=== PATIENT | male | born 1975 | race Caucasian/White ===

== ENCOUNTER 2025-09-19 16:00 | Inpatient (IN) ==
--- NOTE | 2025-09-19 16:20 | Emergency Department Note ---
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 He notes since his diagnosis he has had belly pain but this has significantly worsened over the past 3 weeks. He notes that has been unable to keep really anything down. He notes he has been significantly more short of breath. He does have increased swelling in the bilateral lower extremities. ADDITIONAL HISTORY OBTAINED: Family provides additional history notes that he is on Eliquis. [id number] also has that he has continued to deteriorate and they are struggling taking care of him at this time. They do not know his prognosis. Chronic Medical/Social Conditions Affecting Care: Per HPI PAST MEDICAL HISTORY:See Below PAST SURGICAL HISTORY:See Below FAMILY HISTORY:See Below SOCIAL HISTORY:See Below HOME MEDICATIONS:See Below ALLERGIES:See Below VITALS:See Below PHYSICAL EXAMINATION: GENERAL: Sitting up in bed, alert, ill-appearing, disheveled EYE EXAM: normal conjunctiva. PERRL and EOM's grossly intact. OROPHARYNX: Dry mucous membranes NECK: supple, no nuchal rigidity, no adenopathy, non-tender LUNGS: Clear to auscultation. Normal chest wall mechanics HEART: no murmurs, S1 normal and S2 normal ABDOMEN: abdomen firm and distended, tender to palpation, urostomy in right lower quadrant BACK: Back is symmetrical on inspection and there is no deformity, no midline tenderness, no CVA tenderness. UPPER EXTREMITIES: upper extremities are grossly normal. LOWER EXTREMITIES: Pitting edema in the bilateral lower extremities. Calves are equal bilaterally. NEURO EXAM: Normal sensorium, cranial nerves II-XII grossly intact, normal speech, no gross weakness of arms, no gross weakness of legs. MEDICAL DECISION MAKING: Patient is a 50-year-old male who presents ER for above-stated complaint. IV was established and blood work is obtained. He is found to be tachycardic and complaining of diffuse abdominal pain. Labs show leukocytosis of 22,000 which has continued to increase since his last visit. Hemoglobin 11. BMP with hyperkalemia at 5.6 and a BUN which was significantly elevated which does favor dehydration. He was given IV fluids. Calcium was elevated at 12.6. LFTs with an AST of 955 and ALT of 500. T. bili at 2.3. BNP is elevated at 600. Lipase was normal. UA with nitrates leuks whites and bacteria. Was covered with IV cefepime. Patient was given IV Zometa after discussion with hematology oncology Dr. Velazquez. Did discuss with the [id number] and we do have significant amount of questions in regards to life expectancy and possible options. Family would likely benefit as well as patient with a discussion with the hospitalist, oncology and palliative care at this time. Will defer to the hospitalist. Patient was given several dose of IV morphine while here and was placed on nasal cannula. Consults/Care Managements Discussions: Per [facility] Triage Nursing notes reviewed. Limited review of prior medical records performed Vital Signs: reviewed and remarkable for tachy Differential diagnosis: Infection, dehydration, metabolic abnormality, hypo/hyperglycemia, electrolyte disturbance, anemia, hypoxia, cardiac sources, intracerebral event, toxicologic, neurologic, as well as other pathologies. ER treatment provided: See below Diagnostics interpreted by me include EKG and cardiac monitoring as listed below: -Cardiac Monitoring: An order was placed for continuous cardiac monitoring. The monitor shows a rate of 112 with sinus rhythm. -ECG: Sinus tachycardia rate of 118 Left axis No PVCs QTc 414 -Laboratory studies:Interpreted by me as stated above in MDM and shown below. Imaging studies: Xrays: As interpreted by me: Portable AP upright 1 view of the chest shows nodular opacities in the lungs CTs show: CTA of the chest and abdomen pelvis as described above Procedures:none Critical Care: None Past Med/Surg History Problem List (Updated 09/19/25 @ 21:28 by Background Dadennys) Iliac vein thrombosis, left Suspected UTI Hypercalcemia of malignancy Acute UTI (Acute) Leukocytosis (Acute) Acute liver failure (Acute) Acute hyperkalemia (Acute) Abdominal pain (Acute) Hypercalcemia (Acute) Metastatic cancer (Acute) Opioid-induced constipation Cancer related pain Iron deficiency anemia Iron deficiency Left shoulder pain Metastasis to liver Constipation Distended bladder Left testicular pain Neurogenic bladder Lower back pain Erectile dysfunction Urinary hesitancy Pectoralis muscle rupture Medical History Pelvic mass in 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 Surgical History H/O knee surgery Social History Smoking Status: Never smoker Second Hand Exposure: No; Preferred Language: [place] Hearing Ability: Normal Immunology Teacher Required: No Beliefs That Will Affect Care: None marital status: Current Living Situation: Family current occupational status: employed Feels Safe at Home: Yes Childhood Exposure to Second-Hand Smoke: No Seatbelt Use: always Sunscreen Use: Yes Allergies Allergies Allergy/AdvReac Type Severity Reaction Status Date / Time latex Allergy rash Verified 09/19/25 17:38 adhesive tape AdvReac rash Verified 09/19/25 17:38 Home Meds Home Medications Medication Instructions Recorded Confirmed nandrolone decanoate 100 mg/mL 20 mg IM 3XWK 03/14/24 09/19/25 intramuscular syringe tadalafil 10 mg tablet 10 mg PO DAILY PRN PRN 03/14/24 09/19/25 testosterone cypionate 100 mg/mL 40 mg subcut 3XWK 03/14/24 09/19/25 intramuscular oil 27.17 1 applic topical BID PRN NEEDED 07/05/25 09/19/25 anastrozole 1 mg tablet 0.125 mg PO 3XWK 08/03/25 09/19/25 polyethylene glycol 3350 17 17 g PO DAILY 09/06/25 09/19/25 gram/dose oral powder (Miralax) apixaban 5 mg tablet (Eliquis) 5 mg PO BID 09/19/25 09/19/25 cyclobenzaprine 10 mg tablet 5 - 10 mg PO BID PRN muscle spasm 09/19/25 09/19/25 Previous Rx's Medication Instructions Recorded iron sucrose 100 mg iron/5 mL 300 mg (15 mL) IV Q7D 3 doses 08/03/25 intravenous solution naloxone 4 mg/actuation nasal spray 1 spray intranasal Q3M PRN opioid 08/30/25 overdose #2 ea gabapentin 300 mg capsule 300 mg PO TID #90 caps 09/04/25 duloxetine 30 mg capsule,delayed 30 mg PO DAILY #30 caps 09/15/25 release fentanyl 50 mcg/hr transdermal 1 patch transdermal Q72H #10 ea 09/15/25 patch hydromorphone 2 mg tablet 2 mg PO .COMPLEX #120 tabs 09/15/25 Results & Data (ED) Vital Signs Vital Signs - 24 hr 09/19/25 16:09 09/19/25 16:09 09/19/25 16:27 Temperature 36.4 C L Temperature Source Oral Pulse Rate 118 H Pulse Rate [Apical] Pulse Rate from SpO2 Sensor Respiratory Rate 18 Blood Pressure 120/99 Blood Pressure [Right Arm] Blood Pressure Mean 106 Blood Pressure Mean [Right Arm] Pulse Oximetry 93 Oxygen Delivery Method Room Air Room Air Room Air Oxygen Flow Rate Sepsis New/Unexplained Change in Mental Status No Sepsis Action Taken by Nursing No Action Required Oxygen Flow Rate - Titration Pulse Oximetry Post Tiitration 09/19/25 16:29 09/19/25 16:30 09/19/25 17:00 Temperature Temperature Source Pulse Rate 120 H 114 H Pulse Rate [Apical] 116 H Pulse Rate from SpO2 Sensor 114 H Respiratory Rate 16 17 Blood Pressure Blood Pressure [Right Arm] 132/93 Blood Pressure Mean Blood Pressure Mean [Right Arm] 106 Pulse Oximetry 92 91 Oxygen Delivery Method Room Air Room Air Oxygen Flow Rate Sepsis New/Unexplained Change in Mental Status Sepsis Action Taken by Nursing Oxygen Flow Rate - Titration Pulse Oximetry Post Tiitration 09/19/25 17:00 09/19/25 17:30 09/19/25 17:30 Temperature Temperature Source Pulse Rate 114 H Pulse Rate [Apical] Pulse Rate from SpO2 Sensor 114 H Respiratory Rate 14 Blood Pressure 124/87 124/97 Blood Pressure [Right Arm] Blood Pressure Mean 108 106 Blood Pressure Mean [Right Arm] Pulse Oximetry 91 Oxygen Delivery Method Oxygen Flow Rate Sepsis New/Unexplained Change in Mental Status Sepsis Action Taken by Nursing Oxygen Flow Rate - Titration Pulse Oximetry Post Tiitration 09/19/25 18:00 09/19/25 18:00 09/19/25 18:05 Temperature Temperature Source Pulse Rate 113 H Pulse Rate [Apical] Pulse Rate from SpO2 Sensor 112 H Respiratory Rate 12 Blood Pressure 125/91 Blood Pressure [Right Arm] Blood Pressure Mean 109 Blood Pressure Mean [Right Arm] Pulse Oximetry 92 88 L Oxygen Delivery Method Nasal Cannula Oxygen Flow Rate 0 Sepsis New/Unexplained Change in Mental Status Sepsis Action Taken by Nursing Oxygen Flow Rate - Titration 2 Pulse Oximetry Post Tiitration 96 09/19/25 18:13 09/19/25 18:30 09/19/25 18:30 Temperature Temperature Source Pulse Rate 112 H Pulse Rate [Apical] 111 H Pulse Rate from SpO2 Sensor 112 H Respiratory Rate 12 11 L Blood Pressure 128/92 Blood Pressure [Right Arm] Blood Pressure Mean 96 Blood Pressure Mean [Right Arm] Pulse Oximetry 97 97 Oxygen Delivery Method Nasal Cannula Nasal Cannula Oxygen Flow Rate 2 2 Sepsis New/Unexplained Change in Mental Status Sepsis Action Taken by Nursing Oxygen Flow Rate - Titration Pulse Oximetry Post Tiitration Laboratory Data 09/19/25 16:13 09/19/25 16:13 Lab Results 09/19/25 09/19/25 Range/Units 16:13 16:30 WBC 22.77 H (4.8-10.8) K/ul RBC 5.28 (4.70-6.10) M/uL Hgb 11.8 L (14.0-18.0) g/dL Hct 38.1 L (42.0-52.0) % MCV 72.2 L (80.0-100.0) fL MCH 22.3 L (25.0-34.0) pg MCHC 31.0 L (32.0-36.0) g/dL RDW Std Deviation 65.9 H (36.4-46.3) fL RDW Coeff of Ludivina 27.8 H (11.5-14.5) % Plt Count 171 (130-400) K/uL Absolute Nucleated RBC 1.88 H (0.00-0.12) K/uL Nucleated RBC % (auto) 8.3 % Neutrophils % (Manual) 65 % Lymphocytes % (Manual) 7 % Monocytes % (Manual) 7 % Eosinophils % (Manual) 1 % Basophils % (Manual) 1 % Metamyelocytes % (Man) 8 % Myelocytes % (Man) 11 % Neutrophils # (Manual) 14.80 H (1.40-6.50) K/uL Total Absolute Neuts 14.80 H (1.4-6.5) K/uL Lymphocytes # (Manual) 1.59 (1.2-3.4) K/uL Total Abs Lymphocytes 1.59 (1.2-3.4) K/uL Monocytes # (Manual) 1.59 H (0.11-0.59) K/uL Eosinophils # (Manual) 0.23 (0-0.50) K/uL Basophils # (Manual) 0.23 H (0-0.2) K/uL Metamyelocytes # (Man) 1.82 H (0-0) K/uL Myelocytes # (Manual) 2.50 H (0-0) K/uL Polychromasia 2+ Anisocytosis Present Sodium 132 L (136-145) mmol/L Potassium 5.6 H (3.5-5.1) mmol/L Chloride 95 L (98-107) mmol/L Carbon Dioxide 25 (21-32) mmol/L Anion Gap 12 H (3-11) BUN 70 H (6-23) mg/dl Creatinine 1.39 (0.6-1.4) mg/dl Est Cr Clr Drug Dosing 88.7 ml/min eGFR 61.38 BUN/Creatinine Ratio 50.4 H (10-20) Glucose 74 (70-99(Fasting)) mg/dl Calcium 12.6 H* (8.6-10.3) mg/dl Total Bilirubin 2.3 H (0.2-1.0) mg/dl AST 955 H (13-39) U/L ALT 469 H (7-52) U/L Alkaline Phosphatase 526 H (34-104) U/L Troponin I High Sens 15.4 (0-20) pg/ml B-Natriuretic Peptide 670 H (0-100) pg/ml Total Protein 6.4 (6.0-8.3) gm/dl Albumin 3.0 L (3.4-5.0) gm/dl Globulin 3.4 (2.5-4.0) gm/dl Albumin/Globulin Ratio 0.9 (0.9-2) Lipase 30 (11-82) U/L Urine Color Dark Yellow Urine Appearance Clear (Clear) Urine pH 5.5 (4.5-7.5) Ur Specific [place] 1.019 (1.000-1.030) Urine Protein 1+ H (Negative) Urine Glucose (UA) Negative (Negative) Urine Ketones Negative (Negative) Urine Blood 3+ H (Negative) Urine Nitrite Positive A (Negative) Urine Bilirubin 1+ H (Negative) Urine Urobilinogen Negative (Negative) Ur Leukocyte Esterase 2+ H (Negative) Urine WBC (Auto) 21-50 H (0-5) /hpf Urine RBC (Auto) >20 H (0-2) /hpf U Hyaline Cast (Auto) 3-5 H (0-2) /lpf U Epithel Cells (Auto) 0-2 (0-2) /hpf Urine Bacteria (Auto) 3+ H (None Seen) Hyaline Casts Present A (None Presnt) /lpf Urine Mucus Present A (None Prsent) Urine Comment Administered Medications Apixaban (Apixaban 5 Mg Tablet) 5 mg PO BID OMAR Stop: 10/19/25 21:44 Last Admin: 09/19/25 22:20 Dose: 5 mg Documented By: [id number] Fentanyl (Fentanyl 50 Mcg/Hr Tdsy) 1 patch TD Q72H OMAR Stop: 10/03/25 21:44 Last Admin: 09/19/25 22:01 Dose: 1 patch Documented By: [id number] Sodium Chloride (Nss) 1,000 mls @ 60 mls/hr IV .[id number] OMAR Stop: 09/22/25 21:30 Last Admin: 09/19/25 22:13 Dose: 60 mls/hr Documented By: [id number] Miscellaneous (Fentanyl Patch Remove & Waste) 1 each N/A Q3D OMAR Stop: 10/19/25 21:44 Last Admin: 09/19/25 22:03 Dose: 1 each Documented By: [id number] Co-signed By: MARIA ELENA Morphine Sulfate (Morphine Sulfate 4 Mg/Ml 1 Ml Carp\Vial) 2 mg IV Q3H PRN PRN Reason: Pain Stop: 10/03/25 21:33 Last Admin: 09/19/25 21:59 Dose: 2 mg Documented By: [id number] Discontinued Medications Sodium Chloride (Nss) 1,000 mls @ 999 mls/hr IV .Q1H1M ONE Stop: 09/19/25 17:21 Last Infusion: 09/19/25 18:03 Dose: Infused Documented By: Admin: 09/19/25 16:23 Dose: 999 mls/hr Documented By: LUCY Cefepime HCl (Maxipime 2000mg) 2,000 mg in 20 mls @ 5 mls/min IV NOW STA; Protocol Stop: 09/19/25 18:11 Last Admin: 09/19/25 19:53 Dose: 5 mls/min Documented By: MARYELLEN Zoledronic Acid 4 mg/ Sodium (Chloride) 105 mls @ 410 mls/hr IV ONE ONE; Protocol Stop: 09/19/25 18:31 Last Infusion: 09/19/25 19:45 Dose: Infused Documented By: Admin: 09/19/25 19:27 Dose: 410 mls/hr Documented By: MARYELLEN Sodium Chloride (Nss) 500 mls @ 999 mls/hr IV .Q31M ONE Stop: 09/19/25 19:52 Last Infusion: 09/19/25 20:30 Dose: Infused Documented By: Admin: 09/19/25 19:53 Dose: 999 mls/hr Documented By: MARYELLEN Ioversol (Optiray 320 125ml) 115 ml IV ONCE ONE Stop: 09/19/25 17:15 Last Admin: 09/19/25 17:15 Dose: 115 ml Documented By: RENEA Morphine Sulfate (Morphine Sulfate 4 Mg/Ml 1 Ml Carp\Vial) 4 mg IV NOW STA Stop: 09/19/25 16:18 Last Admin: 09/19/25 16:24 Dose: 4 mg Documented By: LUCY Morphine Sulfate (Morphine Sulfate 4 Mg/Ml 1 Ml Carp\Vial) 4 mg IV NOW STA Stop: 09/19/25 17:29 Last Admin: 09/19/25 17:55 Dose: 4 mg Documented By: LUCY Ondansetron HCl (Ondansetron Inj 2 Mg/Ml 2 Ml Vial) 4 mg IV NOW STA Stop: 09/19/25 16:18 Last Admin: 09/19/25 16:24 Dose: 4 mg Documented By: LUCY Imaging Data Radiologist's Impression: Abdomen/Pelvis CT 09/19/25 16:16 Clinical History: Spindle cell sarcoma Technique: Axial computed tomography images were obtained of the abdomen and pelvis after the administration of intravenous contrast. Comparison is made to the prior CT dated 08/24/2025 Findings: There has been interval increase in size and number of innumerable liver masses, consistent with metastatic disease. There is associated hepatomegaly. There is suspected thrombosis of the right portal vein. The gallbladder appears unremarkable. No bile duct dilatation is noted. The spleen is enlarged measuring 15.3 cm. No focal splenic lesion is evident. The pancreas appears normal with no sign of acute or chronic pancreatitis and no mass lesion noted. The pancreatic duct is of normal caliber. The adrenal glands appear unremarkable. No definite renal or proximal ureteral calculi are seen on this contrast-enhanced study. There is unchanged moderate severity right hydronephrosis. No renal mass lesion is identified. The abdominal aorta is of normal caliber. An IVC filter is again seen. There is multifocal nodularity involving the omentum The stomach appears normal. There is no sign of small bowel obstruction. The colon appears unremarkable. The appendix appears normal also. No free intraperitoneal air is identified. There is a small amount of ascites. There is diffuse body wall edema The bladder has been removed with an apparent ileal conduit. The prostate appears to have been removed as well. The iliac arteries are of normal caliber. There is apparent thrombus in the left common iliac vein. No pelvic adenopathy is noted. No fracture is identified. No focal osseous lesion is seen Impression: 1. Interval worsening of extensive hepatic metastatic disease 2. Right portal vein thrombosis, which could be due to either tumor invasion or bland thrombus 3. Suspected omental metastatic disease 4. Small amount of ascites and body wall edema 5. Unchanged right hydronephrosis which could be due to ureteral stricture caused by metastatic disease 6. Thrombus in the left common iliac vein, with an IVC filter in place 7. Hepatosplenomegaly ACT 112: Positive. There are findings on this exam that require communication between the performing entity and the patient following Patient Test Result Information Act ([place] ACT 112) guidelines. Electronically signed by Jeff Pearson 09-19-2025 5:57 PM Chest X-Ray 09/19/25 16:16 Clinical History: Chest pain Technique: A frontal view of the chest was obtained Comparison is made to the prior examination dated 08/28/2025 Findings: There are no confluent pulmonary infiltrates. The heart size is within normal limits. No pleural effusion or pneumothorax is seen. There is an unchanged 2.3 cm right lung base nodule No fracture is noted. There is a left chest wall port with its tip in the lower SVC Impression: Unchanged 2.3 cm nodule in the right lung base ACT 112: Positive. There are findings on this exam that require communication between the performing entity and the patient following Patient Test Result Information Act ([place] ACT 112) guidelines. Electronically signed by Jeff Pearson 09-19-2025 4:[address] 09/19/25 16:16 Clinical history: Pain Technique: Axial computed tomography images were obtained of the lumbar spine without intravenous contrast. Sagittal and coronal reconstructions were obtained Comparison is made to the MRI of the lumbar spine dated 01/28/2024 Findings: No fracture is identified. No listhesis is seen. No focal osseous lesion is evident. There is no definite sign of osteomyelitis At L1-2, there is a mild disc bulge. There is no spinal stenosis. The neural foramen are patent At L2-3, there is a disc bulge without spinal stenosis. There is right greater than left neural foramen narrowing that may affect the right L2 nerve root At L3-4, there is a disc bulge without spinal stenosis. There is mild bilateral neural foramen narrowing At L4-5, there is suspected mild spinal stenosis due to a disc bulge. There is bilateral neural foramen narrowing that may affect the exiting L4 nerve roots At L5-S1, there is a disc bulge without spinal stenosis. There is bilateral neural foramen narrowing that may affect the exiting L5 roots Impression: 1. No definite lumbar spine fracture 2. Mild spinal stenosis at L4-5 3. Right L2-3 and bilateral L5-S1 neural foramen narrowing, which may affect the exiting nerve roots Electronically signed by Jeff Pearson 09-19-2025 6:02 PM Chest CTA 09/19/25 16:20 Clinical history: Spindle cell sarcoma Technique: Axial computed tomography images were obtained of the chest after the administration of intravenous contrast according to the CT angiogram protocol Comparison is made to the prior CT dated 08/24/2025 Findings: There is no definite sign of pulmonary embolism. There has been interval increase in size and number of multiple scattered pulmonary nodules. The largest is a 2.1 cm right lower lobe nodule that previously measured 1.5 cm. There is bilateral lower lobe and lingular atelectasis. There is no left pleural effusion or pneumothorax. There is a new small right pleural effusion. No endobronchial lesion is seen There is no mediastinal, hilar, or axillary adenopathy. The thoracic aorta appears unremarkable with no sign of aneurysm or dissection. There is no pericardial effusion. There is a left chest wall port No fracture is seen. No focal osseous lesion is evident Impression: 1. No definite sign of pulmonary embolism 2. Interval increase in size and number of multiple pulmonary nodules, consistent with worsening metastatic disease 3. New small right pleural effusion 4. Bilateral lung base atelectasis Electronically signed by Jeff Pearson 09-19-2025 5:48 PM Discharge Plan Visit Data Chief Complaint: Illness Stated Complaint: EDEMA OF LE ED Provider: Jesus Vee Discharge Problem: Metastatic cancer, Hypercalcemia, Abdominal pain, Acute hyperkalemia, Acute liver failure, Leukocytosis, Acute UTI Patient Disposition: Admitted As Inpatient Condition: Serious Discharge Instructions Interventions: ED Discharge Assessment Last Done: 09/19/25 21:10 Discharge Problem: Metastatic cancer Qualifiers: Area of secondary neoplastic involvement: unspecified site Qualified Code(s): C 79.9 - Secondary malignant neoplasm of unspecified site Abdominal pain Qualifiers: Abdominal location: unspecified location Qualified Code(s): R10.9 - Unspecified abdominal pain Acute liver failure Qualifiers: Hepatic coma status: without hepatic coma Qualified Code(s): K72.00 - Acute and subacute hepatic failure without coma Leukocytosis Qualifiers: Leukocytosis type: unspecified Qualified Code(s): D72.829 - Elevated white blood cell count, unspecified
[2025-09-19] MEDS: SODIUM CHLORIDE 0.9% 1,000 ML IV ONE (16:23)
[2025-09-19] MEDS: MoRPHine SULFATE 4 MG/ML 1 ML CARP\\VIAL IV STA ×2 (16:24→17:55)
[2025-09-19] MEDS: ONDANSETRON INJ 2 MG/ML 2 ML VIAL IV STA (16:24)
--- NOTE | 2025-09-19 16:51 | XRay Report ---
Clinical History: Chest pain Technique: A frontal view of the chest was obtained Comparison is made to the prior examination dated 08/28/2025 Findings: There are no confluent pulmonary infiltrates. The heart size is within normal limits. No pleural effusion or pneumothorax is seen. There is an unchanged 2.3 cm right lung base nodule No fracture is noted. There is a left chest wall port with its tip in the lower SVC Impression: Unchanged 2.3 cm nodule in the right lung base ACT 112: Positive. There are findings on this exam that require communication between the performing entity and the patient following Patient Test Result Information Act ([place] ACT 112) guidelines. Electronically signed by Jfef Pearson 09-19-2025 4:51 PM
[2025-09-19 16:58] LABS: ALC (manual) 1.59 K/uL (1.2-3.4); ANC (manual) 14.80 K/uL (1.4-6.5); Anisocytosis Present; Hematocrit (blood only) 38.1 % (42.0-52.0); Hemoglobin 11.8 g/dL (14.0-18.0); Mean Corpuscular Hemoglobin 22.3 pg (25.0-34.0); Mean Corpuscular Volume 72.2 fL (80.0-100.0); Platelet Count 171 K/uL (130-400); Polychromasia 2+; RDW Standard Deviation 65.9 fL (36.4-46.3); Red Blood Count 5.28 M/uL (4.70-6.10); White Blood Count 22.77 K/ul (4.8-10.8)
[2025-09-19 17:02] LABS: Alanine Aminotransferase 469.0 U/L (7-52); Albumin Globulin Ratio 0.9 (0.9-2); Albumin Level 3.0 gm/dl (3.4-5.0); Alkaline Phosphatase 526.0 U/L (34-104); Anion Gap 12.0 (3-11); Bilirubin,Total 2.3 mg/dl (0.2-1.0); Blood Urea Nitrogen 70.0 mg/dl (6-23); Calcium 12.6 mg/dl (8.6-10.3); Carbon Dioxide 25.0 mmol/L (21-32); Chloride 95.0 mmol/L (98-107); Creatinine Clr Calc Pharmacy 88.7 ml/min; Globulin 3.4 gm/dl (2.5-4.0); Glucose 74.0 mg/dl (70-99(Fasting)); Lipase 30.0 U/L (11-82); Potassium 5.6 mmol/L (3.5-5.1); Sodium 132.0 mmol/L (136-145); Total Protein 6.4 gm/dl (6.0-8.3)
[2025-09-19 17:08] LABS: Appearance Urine Clear (Clear); Bacteria Urine Automated 3+ (None Seen); Epithelial Cell Urine Auto 0-2 /hpf (0-2); Glucose Urine UA Negative (Negative); RBC Urine Automated >20 /hpf (0-2); WBC Urine Automated 21-50 /hpf (0-5)
[2025-09-19] MEDS: OPTIRAY 320 125ml IV ONE (17:15)
--- NOTE | 2025-09-19 17:49 | CT Scan Report ---
Clinical history: Spindle cell sarcoma Technique: Axial computed tomography images were obtained of the chest after the administration of intravenous contrast according to the CT angiogram protocol Comparison is made to the prior CT dated 08/24/2025 Findings: There is no definite sign of pulmonary embolism. There has been interval increase in size and number of multiple scattered pulmonary nodules. The largest is a 2.1 cm right lower lobe nodule that previously measured 1.5 cm. There is bilateral lower lobe and lingular atelectasis. There is no left pleural effusion or pneumothorax. There is a new small right pleural effusion. No endobronchial lesion is seen There is no mediastinal, hilar, or axillary adenopathy. The thoracic aorta appears unremarkable with no sign of aneurysm or dissection. There is no pericardial effusion. There is a left chest wall port No fracture is seen. No focal osseous lesion is evident Impression: 1. No definite sign of pulmonary embolism 2. Interval increase in size and number of multiple pulmonary nodules, consistent with worsening metastatic disease 3. New small right pleural effusion 4. Bilateral lung base atelectasis Electronically signed by Jeff Pearson 09-19-2025 5:48 PM
--- NOTE | 2025-09-19 17:58 | CT Scan Report ---
Clinical History: Spindle cell sarcoma Technique: Axial computed tomography images were obtained of the abdomen and pelvis after the administration of intravenous contrast. Comparison is made to the prior CT dated 08/24/2025 Findings: There has been interval increase in size and number of innumerable liver masses, consistent with metastatic disease. There is associated hepatomegaly. There is suspected thrombosis of the right portal vein. The gallbladder appears unremarkable. No bile duct dilatation is noted. The spleen is enlarged measuring 15.3 cm. No focal splenic lesion is evident. The pancreas appears normal with no sign of acute or chronic pancreatitis and no mass lesion noted. The pancreatic duct is of normal caliber. The adrenal glands appear unremarkable. No definite renal or proximal ureteral calculi are seen on this contrast-enhanced study. There is unchanged moderate severity right hydronephrosis. No renal mass lesion is identified. The abdominal aorta is of normal caliber. An IVC filter is again seen. There is multifocal nodularity involving the omentum The stomach appears normal. There is no sign of small bowel obstruction. The colon appears unremarkable. The appendix appears normal also. No free intraperitoneal air is identified. There is a small amount of ascites. There is diffuse body wall edema The bladder has been removed with an apparent ileal conduit. The prostate appears to have been removed as well. The iliac arteries are of normal caliber. There is apparent thrombus in the left common iliac vein. No pelvic adenopathy is noted. No fracture is identified. No focal osseous lesion is seen Impression: 1. Interval worsening of extensive hepatic metastatic disease 2. Right portal vein thrombosis, which could be due to either tumor invasion or bland thrombus 3. Suspected omental metastatic disease 4. Small amount of ascites and body wall edema 5. Unchanged right hydronephrosis which could be due to ureteral stricture caused by metastatic disease 6. Thrombus in the left common iliac vein, with an IVC filter in place 7. Hepatosplenomegaly ACT 112: Positive. There are findings on this exam that require communication between the performing entity and the patient following Patient Test Result Information Act ([place] ACT 112) guidelines. Electronically signed by Jeff Pearson 09-19-2025 5:57 PM
--- NOTE | 2025-09-19 18:03 | CT Scan Report ---
Clinical history: Pain Technique: Axial computed tomography images were obtained of the lumbar spine without intravenous contrast. Sagittal and coronal reconstructions were obtained Comparison is made to the MRI of the lumbar spine dated 01/28/2024 Findings: No fracture is identified. No listhesis is seen. No focal osseous lesion is evident. There is no definite sign of osteomyelitis At L1-2, there is a mild disc bulge. There is no spinal stenosis. The neural foramen are patent At L2-3, there is a disc bulge without spinal stenosis. There is right greater than left neural foramen narrowing that may affect the right L2 nerve root At L3-4, there is a disc bulge without spinal stenosis. There is mild bilateral neural foramen narrowing At L4-5, there is suspected mild spinal stenosis due to a disc bulge. There is bilateral neural foramen narrowing that may affect the exiting L4 nerve roots At L5-S1, there is a disc bulge without spinal stenosis. There is bilateral neural foramen narrowing that may affect the exiting L5 roots Impression: 1. No definite lumbar spine fracture 2. Mild spinal stenosis at L4-5 3. Right L2-3 and bilateral L5-S1 neural foramen narrowing, which may affect the exiting nerve roots Electronically signed by Jeff Pearson 09-19-2025 6:02 PM
[2025-09-19] MEDS: ZOLEDRONIC ACID 4 MG in SODIUM CHLOR 0.9% MINI-B 100 ML IV ONE (19:27)
--- NOTE | 2025-09-19 19:34 | History & Physical Report ---
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 Oncology consultation requested. Admitted for pain control measures. As needed IV morphine ordered. Will continue with fentanyl patch for now. (2) Hypercalcemia of malignancy: Plan: Calcium level 12.6 on admission. Will follow daily. He received zoledronic acid in the ED. Serial labs (3) Suspected UTI: Plan: Cefepime started in the ED and will be continued, day 1. 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 Continue Eliquis. Plan DNR/DNI. Pain control measures. Oncology consultation. 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 He has had worsening back pain and abdominal pain lately accompanied by shortness of breath. Failure to thrive at home. He came to the ED for further evaluation and he has mild hypercalcemia and possible UTI. Liver enzymes are elevated as expected. [id number] is at the bedside. DNR status is agreed upon knowing that this does not mean do not treat. He was administered intravenous morphine in the ED and he is lethargic but arousable. He also received intravenous cefepime. He is admitted for further evaluation and treatment. Oncology consultation requested Allergies Allergy/AdvReac Type Severity Reaction Status Date / Time latex Allergy rash Verified 09/19/25 17:38 adhesive tape AdvReac rash Verified 09/19/25 17:38 Home Medications Medication Instructions Recorded Confirmed Type nandrolone decanoate 100 mg/mL 20 mg IM 3XWK 03/14/24 09/19/25 History intramuscular syringe tadalafil 10 mg tablet 10 mg PO DAILY PRN PRN 03/14/24 09/19/25 History testosterone cypionate 100 mg/mL 40 mg subcut 3XWK 03/14/24 09/19/25 History intramuscular oil 27.17 1 applic topical BID PRN NEEDED 07/05/25 09/19/25 History anastrozole 1 mg tablet 0.125 mg PO 3XWK 08/03/25 09/19/25 History iron sucrose 100 mg iron/5 mL 300 mg (15 mL) IV Q7D 3 doses 08/03/25 09/19/25 Rx intravenous solution naloxone 4 mg/actuation nasal spray 1 spray intranasal Q3M PRN opioid 08/30/25 09/19/25 Rx overdose #2 ea gabapentin 300 mg capsule 300 mg PO TID #90 caps 09/04/25 09/19/25 Rx polyethylene glycol 3350 17 17 g PO DAILY 09/06/25 09/19/25 History gram/dose oral powder (Miralax) duloxetine 30 mg capsule,delayed 30 mg PO DAILY #30 caps 09/15/25 09/19/25 Rx release fentanyl 50 mcg/hr transdermal 1 patch transdermal Q72H #10 ea 09/15/25 09/19/25 Rx patch hydromorphone 2 mg tablet 2 mg PO .COMPLEX #120 tabs 09/15/25 09/19/25 Rx apixaban 5 mg tablet (Eliquis) 5 mg PO BID 09/19/25 09/19/25 History cyclobenzaprine 10 mg tablet 5 - 10 mg PO BID PRN muscle spasm 09/19/25 09/19/25 History Past Med/Surg History Problem List (Updated 09/19/25 @ 19:32 by Ricardo Johnson MD) Iliac vein thrombosis, left Suspected UTI Hypercalcemia of malignancy Acute UTI (Acute) Leukocytosis (Acute) Acute liver failure (Acute) Acute hyperkalemia (Acute) Abdominal pain (Acute) Hypercalcemia (Acute) Metastatic cancer (Acute) Opioid-induced constipation Cancer related pain Iron deficiency anemia Iron deficiency Left shoulder pain Metastasis to liver Constipation Distended bladder Left testicular pain Neurogenic bladder Lower back pain Erectile dysfunction Urinary hesitancy Pectoralis muscle rupture Medical History Pelvic mass in 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 Surgical History H/O knee surgery Social History Smoking Status: Never smoker Second Hand Exposure: No; Preferred Language: Somali Hearing Ability: Normal Education Specialist Required: No Beliefs That Will Affect Care: None marital status: Current Living Situation: Family current occupational status: employed Feels Safe at Home: Yes Childhood Exposure to Second-Hand Smoke: No Seatbelt Use: always Sunscreen Use: Yes Review of Systems 2 Review of Systems: The patient is very lethargic from intravenous morphine and unable to answer any questions regarding review of systems at this time Physical Exam 2 Physical Exam: General-lethargic. No fever HEENT-head atraumatic and normocephalic, pupils equal and reactive to light, extraocular muscles intact Neck-no lymphadenopathy or thyromegaly, trachea midline Chest-clear to auscultation anteriorly. No rales, wheezing or rhonchi Cardiac-regular rate and rhythm, normal S1 and S2 Abdomen-normal bowel sounds, no hepatosplenomegaly Extremities-2+ pitting edema bilateral lower extremities Neuro-cranial nerves II through XII intact, motor and sensory function within normal limits, strength symmetrical with generalized weakness, no focal deficits Psych-lethargic. Cannot assess Results & Data Results & Data Vital Signs (Past 12 Hours) Vital Signs Temp Pulse Pulse Resp BP BP Pulse Ox 09/19/25 18:30 128/92 09/19/25 18:30 112 H 11 L 97 09/19/25 18:13 111 H 12 97 09/19/25 18:05 88 L 09/19/25 18:00 125/91 09/19/25 18:00 113 H 12 92 09/19/25 17:30 114 H 14 91 09/19/25 17:30 124/97 09/19/25 17:00 124/87 09/19/25 17:00 114 H 17 91 09/19/25 16:30 116 H 16 132/93 92 09/19/25 16:29 120 H 09/19/25 16:27 09/19/25 16:09 09/19/25 16:09 36.4 C L 118 H 18 120/99 93 O2 Del Method O2 Flow Rate 09/19/25 18:30 09/19/25 18:30 Nasal Cannula 2 09/19/25 18:13 Nasal Cannula 2 09/19/25 18:05 Nasal Cannula 0 09/19/25 18:00 09/19/25 18:00 09/19/25 17:30 09/19/25 17:30 09/19/25 17:00 09/19/25 17:00 Room Air 09/19/25 16:30 Room Air 09/19/25 16:29 09/19/25 16:27 Room Air 09/19/25 16:09 Room Air 09/19/25 16:09 Room Air Laboratory Results 09/19/25 16:13 09/19/25 16:13 Code Status & VTE Plan Code Status DNR/DNI VTE Prophylaxis Plan VTE Prophylaxis will be ordered: No PG Care Time/CCT Total # of Minutes Spent Total Time Spent with Patient: Total time spent is greater than 50% in coordination of care (as documented) at patient's floor/unit and/or counseling patient: Coding Level of Care Code 57211 INT INP/OBS CARE 3/75MIN Diagnoses Metastatic cancer C79.9 Area of secondary neoplastic involvement: unspecified site Hypercalcemia of malignancy E83.52 Suspected UTI R39.89 Iliac vein thrombosis, left I82.422 (1) Metastatic cancer Area of secondary neoplastic involvement: unspecified site Qualified Code(s): C79.9 - Secondary malignant neoplasm of unspecified site
[2025-09-19] MEDS: CEFEPIME 2000MG 2,000 MG/20 ML SYR IV STA (19:53)
[2025-09-19] MEDS: SODIUM CHLORIDE 0.9% 500 ML IV ONE (19:53)
[2025-09-19] MEDS: MoRPHine SULFATE 4 MG/ML 1 ML CARP\\VIAL IV PRN (21:59)
[2025-09-19] MEDS: SODIUM CHLORIDE 0.9% 1,000 ML IV SCH (22:13)
[2025-09-19] MEDS: APIXABAN 5 MG TABLET PO SCH (22:20)
[2025-09-20] MEDS ORDERED: MoRPHine SULFATE 2 MG/ML CARP IV PRN (04:53)
[2025-09-20] MEDS: MoRPHine SULFATE 4 MG/ML 1 ML CARP\\VIAL IV PRN ×2 (05:07→19:34)
[2025-09-20 07:13] VITALS: PULSE 122; RESP 18; TEMP 97.7; O2SAT 92
[2025-09-20 08:09] LABS: Albumin Globulin Ratio 1.0 (0.9-2); Albumin Level 3.2 gm/dl (3.4-5.0); Alkaline Phosphatase 471.0 U/L (34-104); Anion Gap 9.0 (3-11); Bilirubin,Total 2.5 mg/dl (0.2-1.0); Blood Urea Nitrogen 71.0 mg/dl (6-23); Calcium 12.3 mg/dl (8.6-10.3); Carbon Dioxide 29.0 mmol/L (21-32); Chloride 96.0 mmol/L (98-107); Creatinine Clr Calc Pharmacy 77.9 ml/min; Globulin 3.1 gm/dl (2.5-4.0); Potassium 6.0 mmol/L (3.5-5.1); Sodium 134.0 mmol/L (136-145); Total Protein 6.3 gm/dl (6.0-8.3)
[2025-09-20 08:17] LABS: Alanine Aminotransferase 522.0 U/L (7-52)
[2025-09-20 09:01] LABS: Hematocrit (blood only) 38.6 % (42.0-52.0); Hemoglobin 11.6 g/dL (14.0-18.0); Mean Corpuscular Hemoglobin 22.2 pg (25.0-34.0); Mean Corpuscular Volume 73.9 fL (80.0-100.0); Platelet Count 145 K/uL (130-400); RDW Standard Deviation 67.9 fL (36.4-46.3); Red Blood Count 5.22 M/uL (4.70-6.10)
[2025-09-20] MEDS: POLYETHYLENE (MIRALAX) 17 GM PACK PO SCH (09:08)
[2025-09-20 09:35] LABS: White Blood Count 21.84 K/ul (4.8-10.8)
[2025-09-20 09:36] LABS: ALC (manual) 1.97 K/uL (1.2-3.4); ANC (manual) 13.10 K/uL (1.4-6.5); Blast # (manual) 0.44 K/uL (0-0); Hypochromasia Present; Ovalocytes 1+; Polychromasia 1+; Target Cells 1+; Tear Drop Cells 1+
--- NOTE | 2025-09-20 09:37 | Palliative Care Consultation ---
Date of Consultation September 20, 2025 Assessment & Plan (1) Cancer related pain: Tramadol 100mg PO tid prn ordered - use this lower potency option prior to son's visit this afternoon, to allow pt more clarity If severe pain, use MS IV prn (2) Need for comfort care: (3) Advanced care planning/counseling discussion: Two separate face to face ACP family meeting was held at bedside and outside in family meeting room for total time of 75min We discussed his clinical course to date, progressive disease, weakness and decline. He has worsening edema and immobility. He requires near-full care and max assistance. He can no longer be managed at home His pain has sharply intensified and even with TDF increase to 50mcg this has not been enough relief He has been started on IV MS for BTP and some IV fluids. This has helped improve pain but signif worsened sedation and AMS. Achieving a balance to allow for some clarity/meaningful interactions has been challenging. His shares they have one child, a 10yo son named Andres. Eloy had chosen not to tell son he has cancer. Instead they have referred to it as "Daddy's been sick and needed a major surgery." They have been a little more open about calling it cancer in front of their child this past week, and Eloy told his last night he wants the truth shared with their son and no more secrets. Son will be here this afternoon at 330pm and they plan to have time as a family to discuss. asked or and I provided, some talking maps to use to share this info with their son. We discussed that children of this age require information that is concrete and not abstract. I encouraged them to be honest and clear, providing details appropriate for their age. We will assure this is a private time to talk without interruptions, and they were advised to use a steady/calm tone while allowing their son to ask his questions and express his feelings without judgment. Reassure him that the family is here for him and offer comfort and support through the situation. I have provided pt and with a [employer] print art kit, to be done with their son this evening. We discussed his overall prognosis and anticipated survival based on prognostics (outlined in HPI) likely to be days to a week or two. She does not have capacity to bring Eloy back home, his needs are too great and he is too much to physically manage in addition to which his pain is escalating and oral meds have failed. We discussed the hospice benefit: an interdisciplinary program offered by nurses, nurses aides, social workers, chaplains and a medical records director for patients with a terminal condition and a life expectancy of less than 6 months. This is covered by Medicare at 100%/no out of pocket expense to patient and all meds/supplies needed by patient for the reason they are on hospice are paid for/covered by hospice. The goal is assure quality of life of the patient in their home setting (home, detention, inpatient hospice setting) by providing symptoms management, psychosocial and spiritual support. However, they cannot offer 24 hours care and if the family is unable to provide that care, they will have to consider personal care with out of pocket cost vs. detention placement. We discussed the goals of hospice as a patient service and the goals of care; we discussed EOL trajectories and transitions carlos the emotional impact of realizing mortality as a concrete reality from prior abstract considerations. Pt was reassured that no matter where they are along this trajectory, they are not alone - their medical team will remain by their side through their journey. Discussed the pros/cons of accepting help when especially weakened and distressed by pain-which would also help provide relief/decrease caregiver burden/strain. We will get an inpatient hospice eval with [facility] per 's request - they have [facility] for home health and like the company. Discussed changes pt may move through in the dying process including but not limited to sleeping more, disorientation when awake, restlessness, diminished s enses/inability to respond to stimulus although ability to be aware of them remains intact longer, changes in body temperatures, skin changes/mottling/cyanosis, respiratory pattern changes, oral secretions. Family verbalized understanding. The goal is to assure a peaceful . Palliative prognostics: His calculated PPS score is 20%: Worst case survival 6 days, most likely 9 days, best case 12 days (95% CI) His Palliative Prognostic Score (PaP) = 17.5 points (Interpretation:30-day survival probability <30% --> 0 - 5.5: 30-day survival probability >70% | 5.6 - 11.0: 30-day survival probability 30-70% | 11.1 - 17.5: 30-day survival probability <30%) His Palliative Prognostic Index Score (PPI) = 15 points (Note:If the PPI is greater than 6.0, survival is less than three weeks (Sensitivity - 80%; Specificity - 85%). (4) Weakness generalized: (5) Palliative care by specialist: Introduced Palliative Medicine and explained our role in patient's care. Patient and/or family were receptive to palliative services for goals of care discussions. Reviewed we are different from hospice, a home health nurse visiting service. (6) Rhabdomyosarcoma of pelvis: Plan As above: very poor prognosis/short anticipated survival worsening and escalating symptom burden cannot safely be managed at home +caregiver burnout and fatigue GIP eval requested Thank you for allowing us to participate in the ongoing care of this patient. Please page with any additional concerns. Panchito Campa DNP Director, Palliative Medicine History of Present Illness Reason for Consultation: cancer pain mgt, GOC, progressive disease Attending Physician: Ricardo Johnson MD History of Present Illness Eloy is a 50yo male with metastatic biopsy-proven spindle cell rhabdomyosarcoma, admitted from home for worsening back pain and abdominal pain lately accompanied by shortness of breath. FTT at home. +mild hypercalcemia and ?UTI he has been worsening inw eakness and pain not improving with oral meds at home needing max assist of 2-3 adults for all care has a walker but is no longer steady on his feet signif BLE edema now +3 pitting he has been more lethargic but at times arousable resting >90% of his days at time restless and agitated Confused about place and time, sometimes asks where he is Family has been at bedside - and father in law, mother in law, close family friend I ran his palliative prognostics: His calculated PPS score is 20%: Worst case survival 6 days, most likely 9 days, best case 12 days (95% CI) His Palliative Prognostic Score (PaP) = 17.5 points (Interpretation:30-day survival probability <30% --> 0 - 5.5: 30-day survival probability >70% | 5.6 - 11.0: 30-day survival probability 30-70% | 11.1 - 17.5: 30-day survival probability <30%) His Palliative Prognostic Index Score (PPI) = 15 points (Note:If the PPI is greater than 6.0, survival is less than three weeks (Sensitivity - 80%; Specificity - 85%). [facility] oncology notes as follows: Patient Name:Eloy Cardenas :1975 Provider:Michele Taylor DOS:09/19/2025 TIME: 1500 Message: Navigator Ayana Ceja let Rn know that she spoke with pt's - who told her pt's BLE edema is so bad he cannot be transported via car to his appointments tomorrow. RN called and spoke with pt's who reports the BLE is impairing pt's walking. But of even larger concern, she said that pt "is so loopy from his pain meds" that pt is incoherent, and is unsafe to be left alone for any amount of time. Dr. Taylor consulted, and direction provided to pt's that Dr. Taylor recommends she call 911 and have pt transported to the hospital. If pt is not able to be coherent or safe alone for any amount of time, and cannot safely ambulate, Dr. Taylor wants pt to be seen. Pt's asked RN to cancel all of tomorrow's appointments, and she said she will call 911 for pt either tonight or tomorrow morning. Dr. Taylor aware. Margarita Thomas RN,Nurse Oncology/Hematology Follow-up Patient Name:Eloy Cardenas [facility] Rec:[id number] Date:1975 Age/Gender:50/male Attending:Michele Taylor Referring Physician:Immanuel Hua DO *NOTICE TO RECEIVING DEMOCRAT/AGENCY This information is strictly Confidential and protected under [place] law. [place] law prohibits you from making any further disclosure of this information unless further disclosure is expressly permitted by the written consent of the person whom it pertains or is authorized by law. A general authorization for the release of medical or other information is not sufficient for this purpose. Hospital accepts no responsibility if the information is made available to any other person, INCLUDING THE PATIENT. DATE OF VISIT 09/01/2025 REASON FOR VISIT Pelvic spindle cell cancer INTERIM HISTORY 09/01/2025: This was conducted over a phone call. He recently had amassive surgical excision at [facility], subsequentlyhe hadabdominal imaging which showed progressive disease in the liver. Clinically he is asymptomatic. Reports no fever or chills. Reports no nausea or vomiting. 04/27/2025: No new issues,currently doing the same. HoweverMRI was done yesterdayreport is still pending. 04/07/2025: No new issues, currently the patient is doing well. No fever chills or night sweats. Appetite is good, the patient is not losing any weight. MRI and restaging scans are scheduled in April. 03/14/2025: Currently doing well, no new symptoms today. No fever or chills. No nausea or vomiting. Appetite is good, the patient is not losing weight. He is tolerating Keytruda well. 02/17/2025: Eloy is back in the clinic for follow-up. [place]. He is resuming Keytruda here with plans for proton beam therapyin [place]. He has noticed thathe is passing urine more frequently. Reports no bleeding or bruising. Reports no fever or chills. His appetite is good, he is not losing any weight. 01/27/2025: Patient presents to the clinic for continuation of treatment with Keytruda.He states he is doing well overall. Denies chest pain, shortness of breath, abdominal pain, nausea, vomiting, diarrhea, or any other new/acute issues. 01/06/2025: Patient presentsto the clinic forcontinuation of treatment with Keychilangoudatrish ch he first received at [facility]. Going forward, he will receive Keytruda at [facility] to reduce travel/time.Patient states he hadnephrostomy tubesreplaced at [facility] recently, whichbecame infected. He notes that hewent to the ER for treatment;was placed on antibiotics that he willcomplete on Thursday.He states he is doing very well. Denies chest pain, shortness of breath, abdominal pain, nausea, vomiting, diarrhea, or any other new/acute issues. HISTORY OF PRESENT ILLNESS 01/28/2024:MRI lumbar spine:Pelvic mass identified 02/12/2024:Pelvic FNA/core:Predominant blood and rare spindle cells. Skeletal muscle 02/25/2024:CT chest with contrast:Few subcentimeter pulmonary nodules 03/09/2024:MRI prostate:16.9 x 15.5 x 18.3 cystic and solid mass arising from the prostate with solid enhancing and diffusion restricted components. Mass exerts mass effect on the adjacent bowel and bladder. 03/14/2024:CT abdomen pelvis:Large mostly cystic, partially solid mass in the central pelvis which is likely arising from the pelvis,measuring 16.8 cm AP by 15.4 cm transverse abutting and displacing the bladder anteriorly in the sigmoid colonposteriorly and superiorly 03/17/2024:Pelvic mass ultrasound-guided biopsy:Extensive necrosis,1800 mL fluid negative as well 04/29/2024:MRI pelvis:Large solid and cystic necrotic mass arising likely from the prostate measuring 17 x 16 x 23 cm 05/05/2024:CT-guided aspiration of cystic pelvic [id number] fluid. Pelvic masscore biopsy : [id number] cell rhabdomyosarcoma, cytology negative fluid 07/04/2024:Ultrasound-guided cyst aspiration:1.25 mL thin brown fluid 07/21/2024:MRI pelvis:Slight enlargement of the large complexsolid and cystic mass in the pelvis, likely arising from the prostate gland. Nonocclusive thrombus in the right external iliac vein. 07/22/2024:CT chest abdomen pelvis:Complex solid and cystic masshas increased + compared to most recent CT 02/01/2024. Bilateralpelvocaliectasis and your ectasisto the leftthe mass in the pelvis. This is slightly more pronounced compared to prior CT 02/01/2024. No evidence of metastatic disease in the pelvis. Right external iliac veinocclusive thrombus is best assessed on recent MRI. A few tiny nodules measuring 3 mm or less are indeterminate. 08/18/2024:Ultrasound-guided core needle biopsy of solid component of cystic pelvic mass. Ultrasound-guided aspiration of cystic component yielding 600 mLdark serosanguineous fluid.[id number] cell rhabdomyosarcoma 08/31/2024:PET/CT:Large approximately 20 cm pelvic mass associated with areas of FDG uptake consistent with biopsy-proven spindle cell rhabdomyosarcoma. No FDG avid bhupendra or distant metastatic disease. Treatment: Dactinomycin Vincristine Cytoxan x 2 cycles Current treatment: Pembrolizumab Outsideevaluation and referrals: Dr. Dalton Cortés MD PhDat [facility] CT chest abdomen pelvis,08/24/2025: IMPRESSION: 1. Interval development of multiple pulmonary nodules measuring up to 1.6 cm consistent with metastases. 2. Significant progression of extensive hepatic metastases, better depicted on the abdomen and pelvis CT which will be reported separately. IMPRESSION: 1. There is postsurgical change from interval resection of the large pelvic mass as well as cystectomy and prostatectomy with right lower quadrant diverting u rostomy. Treatment-related change is seen in the liver, an IVC filter has been placed, and percutaneous nephrostomy tubes have been removed. 2. There has overall been significant progression of multifocal metastatic disease. 3. Multifocal hepatic metastatic disease has markedly worsened from 05/13/2025. 4. Pulmonary metastatic disease is now seen at the lung bases. 5. There is an approximately 9 cm mass in the right lower quadrant either arising from or immediately adjacent to the inferior liver. 6. Moderate to severe right and mild left hydronephrosis. 7. Additional findings as above. The patient is a very pleasant 49-year-old man who comes rustfor continuation of care to get his treatmentfor recently identified spindle cellrhabdomyosarcomawith Keytruda. [place] Reports no fever chills or night sweats. Ports no nausea vomiting. His appetite is good, he is not losing any weight. He is also involved in naturopathic treatment including methylene blue,ivermectin etc. He is also pursuingother alternative treatments from [place]. Overall he seems to be tolerating Keytruda well,he is engaged inexperimental therapeuticsbased ongenetic markers for his cancer. He is already received 2 cycles of chemotherapyand progressed while on chemo. PAST MEDICAL HISTORY Problems:Undifferentiated spindle cell sarcoma (disorder), Chronic cancer related pain, Iron deficiency anemia (disorder) and UTI * Radiotherapy:None * Hospitalizations:None * Screenings:None * Immunizations:None PAST SURGICAL HISTORY Anterior cruciate ligament repair SOCIAL HISTORYSmoking Tobacco : none found; Smokeless Tobacco : none found; Vaping : none found FAMILY HISTORY ALLERGIES * adhesive * iodine * latex HOME MEDICATIONS * Acidophilus (Lactobacillus Acidophilus Oral Capsule) billion cell daily * Bifidobacterium Infantis Oral 1 packet po q7days * Turmeric (Curcumin) Oral tid * Cefdinir Oral 300 mg capsule 1 capsule orally every 12 hours. * Ivermectin Oral 48mg po daily * Oxycodone Oral 5 mg tablet 1 tablet orally every 4 to 6 hours as needed for pain. * Anastrozole Oral 0.125 mg 3 x per week * Testosterone Cypionate IM 200 mg/mL syringe * Cialis (Tadalafil Oral) prn * Eliquis (Apixaban Oral) 5 mg tablet bid REVIEW OF SYSTEMS Constitutional: Negative for weight loss, night sweats, or fever Eyes: Negative for event change of vision ENT: Negative for epistaxis, nasal discharge, sore throat, or deafness Cardiovascular: Negative for anginal type chest pain, palpitations, dizziness, diaphoresis Respiratory: Negative for new shortness of breath, hemoptysis, or purulent cough Gastroinestinal: Negative for diarrhea, hematemesis, melena, nausea, vomiting, or dyspepsia Integumentary (skin): Negative for rash, jaundice or discoloration Genitourinary: Negative for urinary frequency, hematuria, or dysuria Neurological: Negative for weakness, seizure activity, headache, or dizziness Lymphatic/Hematologic: Negative for petechiae, bleeding or new adenopathy Musculoskeletal: Negative for new joint or back pain Allergic/Immunologic: Negative for unusual rash or pruritis PHYSICAL EXAM Vital Signs:Blood pressure: 125/88, Pulse: 120, Temperature: 36.9 C, Respirations: 18, O2 sat: , Pain Scale: 0, Height: 195 cm, Weight: , BSA: , BMI: ECOG Performance Status: Pain Ratin Fatigue: None. Constitutional: Vitals are stable. Eyes: Eyes are RENETTA EOMI without conjunctival erythema or icterus. ENT: External examination was negative for masses. Neck: Negative for masses or palpable thyromegaly. Respiratory: Lung sounds were generally clear bilaterally. Cardiovascular: Heart was RRR without significant murmur, gallops, or rubs. Gastrointestinal: No palpable hepatic or splenomegaly. The abdomen was soft with normal bowel sounds. Lymphatic system: There was no palpable peripheral lymphadenopathy. Musculoskeletal System: The musculoskeletal system concordant with age. Skin: The skin was negative for jaundice. Neurologic Exam: The exam was negative for any focal findings. Psychiatric Exam: Was essentially negative with normal mood and effect. Breast Exam: Done with patient permission was negative for palpable masses or nipple discharge. Extremities: Negative for edema or erythema. Strength and pulses equal. LABORATORY STUDIES Lab Results 09/04/2025 07/28/2025 04/26/2025 04/06/2025 03/13/2025 02/16/2025 CBC WBC, cells/uL 11.33 (H) 9.90 10.59 9.55 RBC x 10^6/uL 5.10 5.16 4.93 4.87 HGB g/dL 13.9 (L) 14.1 14.0 13.6 (L) HCT % 43.5 43.0 42.1 41.9 (L) MCV, corrected fL 85.3 83.3 85.4 86.0 MCH pg 27.3 27.3 28.4 27.9 MCH, g/dL 32.0 32.8 33.3 32.5 PLT x 10^3/uL 316 281 297 253 Ham % 73.6 69.4 74.2 69.9 LY % 13.8 15.3 13.1 13.4 MO % 8.6 11.1 9.3 10.2 EO % 3.0 2.7 1.9 4.6 IG % 0.4 0.5 0.7 0.6 HAM #, cells/uL 8.34 (H) 6.87 (H) 7.87 (H) 6.68 (H) LY #, cells/uL 1.56 1.51 1.39 1.28 BA % 0.6 1.0 0.8 1.3 MO #, cells/uL 0.97 (H) 1.10 (H) 0.98 (H) 0.97 (H) EO #, cells/uL 0.34 0.27 0.20 0.44 BA #, cells/uL 0.07 0.10 0.08 0.12 Manual Differential Granulocytes, immature, x 10^3/uL (M) x 10^3/uL 0.05 0.05 0.07 0.06 Chemistries Glucose, plasma mg/dL 81 89 89 100 (H) BUN mg/dL 22 20 19 23 Creatinine mg/dL 1.88 (H) 1.77 (H) 1.66 (H) 1.83 (H) BUN/Creatinine ratio 11.7 11.3 11.4 12.6 Sodium mmol/L 136 133 (L) 136 137 Potassium mmol/L 4.0 5.0 4.7 4.3 Chloride mmol/L 99 98 100 99 CO2 mmol/L 31 27 30 33 (H) Anion gap 6 8 6 5 Calcium mg/dL 10.2 10.1 9.9 10.6 (H) Albumin g/dL 4.6 4.4 4.5 4.6 A/G ratio 1.5 1.4 1.6 1.6 Bilirubin, total mg/dL 0.5 0.7 0.5 0.5 Globulin, g/L 3.0 3.2 2.8 2.8 Alkaline phosphatase U/L 44 43 39 45 AST/SGOT U/L 19 20 20 24 ALT/SGPT U/L 15 16 15 19 Total protein, serum g/dL 7.6 7.6 7.3 7.4 Lab - Other Lab Report See attached See attached PMV Bld 9.4 9.9 9.8 9.4 Est GFR 42.99 46.21 49.91 44.40 TSH SerPl-aCnc 1.873 2.209 1.852 1.784 RDW RBC-Rto 40.6 13.1 39.8 13.2 40.6 13.0 43.1 13.9 ASSESSMENT AND PLAN Spindle cell rhabdomyosarcoma of the pelvis: Reviewed latest imaging Done at [facility] At this point I recommend reinstitution of palliative systemic therapyincluding immunotherapywhich I discussed previously He wants to discuss this with his doctors at [facility] I will continue IV iron replacement Will start chemotherapy once the patient agrees after he getsa second opinion . Michele Taylor MD Copy To:Immanuel Hua DO (Referring) Electronically signed by Michele Taylor MD 09/11/2025 11:24 AM EST Allergies Allergy/AdvReac Type Severity Reaction Status Date / Time latex Allergy rash Verified 09/19/25 17:38 adhesive tape AdvReac rash Verified 09/19/25 17:38 Home Medications Medication Instructions Recorded Confirmed Type nandrolone decanoate 100 mg/mL 20 mg IM [id number] 03/14/24 09/19/25 History intramuscular syringe tadalafil 10 mg tablet 10 mg PO DAILY PRN PRN 03/14/24 09/19/25 History testosterone cypionate 100 mg/mL 40 mg subcut 3XWK 03/14/24 09/19/25 History intramuscular oil 27.17 1 applic topical BID PRN NEEDED 07/05/25 09/19/25 History anastrozole 1 mg tablet 0.125 mg PO 3XWK 08/03/25 09/19/25 History iron sucrose 100 mg iron/5 mL 300 mg (15 mL) IV Q7D 3 doses 08/03/25 09/19/25 Rx intravenous solution naloxone 4 mg/actuation nasal spray 1 spray intranasal Q3M PRN opioid 08/30/25 09/19/25 Rx overdose #2 ea gabapentin 300 mg capsule 300 mg PO TID #90 caps 09/04/25 09/19/25 Rx polyethylene glycol 3350 17 17 g PO DAILY 09/06/25 09/19/25 History gram/dose oral powder (Miralax) duloxetine 30 mg capsule,delayed 30 mg PO DAILY #30 caps 09/15/25 09/19/25 Rx release fentanyl 50 mcg/hr transdermal 1 patch transdermal Q72H #10 ea 09/15/25 09/19/25 Rx patch hydromorphone 2 mg tablet 2 mg PO .COMPLEX #120 tabs 09/15/25 09/19/25 Rx apixaban 5 mg tablet (Eliquis) 5 mg PO BID 09/19/25 09/19/25 History cyclobenzaprine 10 mg tablet 5 - 10 mg PO BID PRN muscle spasm 09/19/25 09/19/25 History Patient History Medical History Pelvic mass in 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 Surgical History H/O knee surgery Social History Smoking Status: Never smoker Second Hand Exposure: No; Hx Alcohol Use: No Hx Substance Use: No Preferred Language: Czech Communication Ability: Effective Hearing Ability: Normal Double Backer Required: No Beliefs That Will Affect Care: Jain marital status: Current Living Situation: Spouse and Family current occupational status: employed Feels Safe at Home: No Is there a partner from a previous relationship who is making you feel unsafe now?: No Childhood Exposure to Second-Hand Smoke: No Seatbelt Use: always Sunscreen Use: Yes Assistive Devices: Cane Review of Systems Review of Systems: All systems reviewed & are unremarkable except as noted in Subjective Physical Exam Physical Exam: frail appearing chronically ill lethargic with intermittent periods of alertness/short lived gen weakness/profound inc resp effort, use of accessory muscles s1s2 abd distended, mild tenderness BLE edematous, erythematous; +3 -4 pitting edema skin +pallor Results & Data Vital Signs (Past 12 Hours) Vital Signs Temp Pulse Resp BP Pulse Ox O2 Del Method O2 Flow Rate 09/20/25 07:12 36.5 C 122 H 18 123/79 92 Room Air 09/19/25 23:18 36.4 C L 118 H 12 126/78 94 Nasal Cannula 2 Laboratory Results 09/20/25 09/19/25 09/19/25 Range/Units 06:52 16:30 16:13 WBC 21.84 H 22.77 H (4.8-10.8) K/ul RBC 5.22 5.28 (4.70-6.10) M/uL Hgb 11.6 L 11.8 L (14.0-18.0) g/dL Hct 38.6 L 38.1 L (42.0-52.0) % MCV 73.9 L 72.2 L (80.0-100.0) fL MCH 22.2 L 22.3 L (25.0-34.0) pg MCHC 30.1 L 31.0 L (32.0-36.0) g/dL RDW Std Deviation 67.9 H 65.9 H (36.4-46.3) fL RDW Coeff of Ludivina 27.9 H 27.8 H (11.5-14.5) % Plt Count 145 171 (130-400) K/uL Absolute Nucleated RBC 2.20 H 1.88 H (0.00-0.12) K/uL Nucleated RBC % (auto) 10.1 8.3 % Neutrophils % (Manual) 60 65 % Lymphocytes % (Manual) 9 7 % Monocytes % (Manual) 9 7 % Eosinophils % (Manual) 3 1 % Basophils % (Manual) 1 % Metamyelocytes % (Man) 8 8 % Myelocytes % (Man) 6 11 % Promyelocytes % (Man) 3 % Blast Cells % (Manual) 2 % Neutrophils # (Manual) 13.10 H 14.80 H (1.40-6.50) K/uL Total Absolute Neuts 13.10 H 14.80 H (1.4-6.5) K/uL Lymphocytes # (Manual) 1.97 1.59 (1.2-3.4) K/uL Total Abs Lymphocytes 1.97 1.59 (1.2-3.4) K/uL Monocytes # (Manual) 1.97 H 1.59 H (0.11-0.59) K/uL Eosinophils # (Manual) 0.66 H 0.23 (0-0.50) K/uL Basophils # (Manual) 0.23 H (0-0.2) K/uL Metamyelocytes # (Man) 1.75 H 1.82 H (0-0) K/uL Myelocytes # (Manual) 1.31 H 2.50 H (0-0) K/uL Promyelocytes # (Man) 0.66 H (0-0) K/uL Blast Cells # (Man) 0.44 H (0-0) K/uL Blood Smear Review Polychromasia 1+ 2+ Hypochromasia Present Anisocytosis Present Target Cells 1+ Tear Drop Cells 1+ Ovalocytes 1+ Sodium 134 L 132 L (136-145) mmol/L Potassium 6.0 H 5.6 H (3.5-5.1) mmol/L Chloride 96 L 95 L (98-107) mmol/L Carbon Dioxide 29 25 (21-32) mmol/L Anion Gap 9 12 H (3-11) BUN 71 H 70 H (6-23) mg/dl Creatinine 1.56 H 1.39 (0.6-1.4) mg/dl Est Cr Clr Drug Dosing 77.9 88.7 ml/min eGFR 53.44 61.38 BUN/Creatinine Ratio 50.4 H (10-20) Glucose 74 (70-99(Fasting)) mg/dl Fasting Glucose 58 L (70-99) mg/dl Calcium 12.3 H* 12.6 H* (8.6-10.3) mg/dl Total Bilirubin 2.5 H 2.3 H (0.2-1.0) mg/dl AST 1265 H 955 H (13-39) U/L ALT 522 H 469 H (7-52) U/L Alkaline Phosphatase 471 H 526 H (34-104) U/L Troponin I High Sens 15.4 (0-20) pg/ml B-Natriuretic Peptide 670 H (0-100) pg/ml Total Protein 6.3 6.4 (6.0-8.3) gm/dl Albumin 3.2 L 3.0 L (3.4-5.0) gm/dl Globulin 3.1 3.4 (2.5-4.0) gm/dl Albumin/Globulin Ratio 1.0 0.9 (0.9-2) Lipase 30 (11-82) U/L Urine Color Dark Yellow Urine Appearance Clear (Clear) Urine pH 5.5 (4.5-7.5) Ur Specific [place] 1.019 (1.000-1.030) Urine Protein 1+ H (Negative) Urine Glucose (UA) Negative (Negative) Urine Ketones Negative (Negative) Urine Blood 3+ H (Negative) Urine Nitrite Positive A (Negative) Urine Bilirubin 1+ H (Negative) Urine Urobilinogen Negative (Negative) Ur Leukocyte Esterase 2+ H (Negative) Urine WBC (Auto) 21-50 H (0-5) /hpf Urine RBC (Auto) >20 H (0-2) /hpf U Hyaline Cast (Auto) 3-5 H (0-2) /lpf U Epithel Cells (Auto) 0-2 (0-2) /hpf Urine Bacteria (Auto) 3+ H (None Seen) Hyaline Casts Present A (None Presnt) /lpf Urine Mucus Present A (None Prsent) Urine Comment Diagnostic Findings Abdomen/Pelvis CT 09/19/25 16:16 Clinical History: Spindle cell sarcoma Technique: Axial computed tomography images were obtained of the abdomen and pelvis after the administration of intravenous contrast. Comparison is made to the prior CT dated 08/24/2025 Findings: There has been interval increase in size and number of innumerable liver masses, consistent with metastatic disease. There is associated hepatomegaly. There is suspected thrombosis of the right portal vein. The gallbladder appears unremarkable. No bile duct dilatation is noted. The spleen is enlarged measuring 15.3 cm. No focal splenic lesion is evident. The pancreas appears normal with no sign of acute or chronic pancreatitis and no mass lesion noted. The pancreatic duct is of normal caliber. The adrenal glands appear unremarkable. No definite renal or proximal ureteral calculi are seen on this contrast-enhanced study. There is unchanged moderate severity right hydronephrosis. No renal mass lesion is identified. The abdominal aorta is of normal caliber. An IVC filter is again seen. There is multifocal nodularity involving the omentum The stomach appears normal. There is no sign of small bowel obstruction. The colon appears unremarkable. The appendix appears normal also. No free intraperitoneal air is identified. There is a small amount of ascites. There is diffuse body wall edema The bladder has been removed with an apparent ileal conduit. The prostate appears to have been removed as well. The iliac arteries are of normal caliber. There is apparent thrombus in the left common iliac vein. No pelvic adenopathy is noted. No fracture is identified. No focal osseous lesion is seen Impression: 1. Interval worsening of extensive hepatic metastatic disease 2. Right portal vein thrombosis, which could be due to either tumor invasion or bland thrombus 3. Suspected omental metastatic disease 4. Small amount of ascites and body wall edema 5. Unchanged right hydronephrosis which could be due to ureteral stricture caused by metastatic disease 6. Thrombus in the left common iliac vein, with an IVC filter in place 7. Hepatosplenomegaly ACT 112: Positive. There are findings on this exam that require communication between the performing entity and the patient following Patient Test Result Information Act ([place] ACT 112) guidelines. Electronically signed by Jeff Pearson 09-19-2025 5:57 PM Chest X-Ray 09/19/25 16:16 Clinical History: Chest pain Technique: A frontal view of the chest was obtained Comparison is made to the prior examination dated 08/28/2025 Findings: There are no confluent pulmonary infiltrates. The heart size is within normal limits. No pleural effusion or pneumothorax is seen. There is an unchanged 2.3 cm right lung base nodule No fracture is noted. There is a left chest wall port with its tip in the lower SVC Impression: Unchanged 2.3 cm nodule in the right lung base ACT 112: Positive. There are findings on this exam that require communication between the performing entity and the patient following Patient Test Result Information Act ([place] ACT 112) guidelines. Electronically signed by Jeff Pearson 09-19-2025 4:[address] 09/19/25 16:16 Clinical history: Pain Technique: Axial computed tomography images were obtained of the lumbar spine without intravenous contrast. Sagittal and coronal reconstructions were obtained Comparison is made to the MRI of the lumbar spine dated 01/28/2024 Findings: No fracture is identified. No listhesis is seen. No focal osseous lesion is evident. There is no definite sign of osteomyelitis At L1-2, there is a mild disc bulge. There is no spinal stenosis. The neural foramen are patent At L2-3, there is a disc bulge without spinal stenosis. There is right greater than left neural foramen narrowing that may affect the right L2 nerve root At L3-4, there is a disc bulge without spinal stenosis. There is mild bilateral neural foramen narrowing At L4-5, there is suspected mild spinal stenosis due to a disc bulge. There is bilateral neural foramen narrowing that may affect the exiting L4 nerve roots At L5-S1, there is a disc bulge without spinal stenosis. There is bilateral neural foramen narrowing that may affect the exiting L5 roots Impression: 1. No definite lumbar spine fracture 2. Mild spinal stenosis at L4-5 3. Right L2-3 and bilateral L5-S1 neural foramen narrowing, which may affect the exiting nerve roots Electronically signed by Jeff Pearson 09-19-2025 6:02 PM Chest CTA 09/19/25 16:20 Clinical history: Spindle cell sarcoma Technique: Axial computed tomography images were obtained of the chest after the administration of intravenous contrast according to the CT angiogram protocol Comparison is made to the prior CT dated 08/24/2025 Findings: There is no definite sign of pulmonary embolism. There has been interval increase in size and number of multiple scattered pulmonary nodules. The largest is a 2.1 cm right lower lobe nodule that previously measured 1.5 cm. There is bilateral lower lobe and lingular atelectasis. There is no left pleural effusion or pneumothorax. There is a new small right pleural effusion. No endobronchial lesion is seen There is no mediastinal, hilar, or axillary adenopathy. The thoracic aorta appears unremarkable with no sign of aneurysm or dissection. There is no pericardial effusion. There is a left chest wall port No fracture is seen. No focal osseous lesion is evident Impression: 1. No definite sign of pulmonary embolism 2. Interval increase in size and number of multiple pulmonary nodules, consistent with worsening metastatic disease 3. New small right pleural effusion 4. Bilateral lung base atelectasis Electronically signed by Jeff Pearson 09-19-2025 5:48 PM PG Care Time/CCT Total # of Minutes Spent Total Time Spent with Patient: Total time spent is greater than 50% in coordination of care (as documented) at patient's floor/unit and/or counseling patient: I spent 150 minutes overall addressing this very complex case: 20 min in medical data review/discussion with referring provider(s) and/or preparation for the visit incl d/w cancer team 15 min in direct interaction with the patient/exam 75 min in Advance Care Planning/Goals of Care discussions as detailed above in note (must be >16min) 15 min in subsequent review and synthesis of assessment and plan 25 min communicating with other providers regarding the patient's case: nursing primary team, oncology, care mgt Advanced Care Planning 05597 Advanced Care Planning 30 Min [id number] Advanced Care Planning Additional 30 [place] [address] IN/OBS CONSULT LVL 5,80M (25 - SIGNIFICANT, SEPARATELY IDENTIFIABLE ) Patient Type New Medical Decision Making High Complexity Diagnoses Cancer related pain G89.3 Need for comfort care Advanced care planning/counseling discussion Z71.89 Weakness generalized R53.1 Palliative care by specialist Z51.5 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
[2025-09-20] MEDS: CEFEPIME 2000MG 2,000 MG/20 ML SYR IV SCH (10:41)
[2025-09-20] MEDS: SODIUM ZIRCONIUM CYCLOSILICATE 10 GM PACKET PO SCH (10:43)
[2025-09-20] MEDS ORDERED: GLYCOPYRROLATE 0.2 MG/ML VIAL IV PRN (11:01)
--- NOTE | 2025-09-20 11:09 | Hospitalist Progress Note ---
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 Oncology consultation requested and pending. Palliative care has evaluated the patient. 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 Hospice evaluation has been requested. (2) Hypercalcemia of malignancy: Plan: Calcium level 12.6 on admission. Calcium level 12.3 today, September 20. No further lab testing ordered. 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 (3) Suspected UTI: Plan: Cefepime has now been discontinued. 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 Eliquis has been discontinued. 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 Hospice evaluation has been requested. Comfort measures only. Admission and Anticipated Discharge Date Admission Date: September 19, 2025 Subjective The patient is more alert this morning. Multiple family members are present. Palliative care is met with the patient and he is now comfort measures only status. Hospice evaluation has been requested. Review of Systems 2 Review of Systems: Constitutionalno fever or chills. Back pain and abdominal pain are fairly well-controlled with current regimen ENTno blurred vision, no double vision, no epistaxis, no sore throat Respiratoryno cough, no wheezing, no shortness of breath Cardiacno palpitations, no chest pain, no syncope Ag nausea, vomiting, diarrhea, melena, hematochezia GUno urinary retention, no urinary incontinence, no dysuria, no hematuria Musculoskeletallow back pain from metastatic disease Skinno bruising, no rashes, no pruritus Neurono isolated weakness, no paresthesia, no weakness Psychsituational depression Physical Exam 2 Physical Exam: General-alert. No fever HEENT-head atraumatic and normocephalic, pupils equal and reactive to light, extraocular muscles intact Neck-no lymphadenopathy or thyromegaly, trachea midline Chest-clear to auscultation anteriorly. No rales, wheezing or rhonchi Cardiac-regular rate and rhythm, normal S1 and S2 Abdomen-normal bowel sounds, no hepatosplenomegaly Extremities-2+ pitting edema bilateral lower extremities Neuro-cranial nerves II through XII intact, motor and sensory function within normal limits, strength symmetrical with generalized weakness, no focal deficits Psych-depressed affect Results & Data Results & Data Vital Signs (Past 12 Hours) Vital Signs Temp Pulse Resp BP Pulse Ox O2 Del Method O2 Flow Rate 09/20/25 07:12 36.5 C 122 H 18 123/79 92 Room Air 09/19/25 23:18 36.4 C L 118 H 12 126/78 94 Nasal Cannula 2 Laboratory Results 09/20/25 06:52 09/20/25 06:52 PG Care Time/CCT Total # of Minutes Spent Total Time Spent with Patient: Total time spent is greater than 50% in coordination of care (as documented) at patient's floor/unit and/or counseling patient: Coding Level of Care Code 11395 SUB INP/OBS CARE 2/35MIN Diagnoses Metastatic cancer C79.9 Area of secondary neoplastic involvement: unspecified site Hypercalcemia of malignancy E83.52 Suspected UTI R39.89 Iliac vein thrombosis, left I82.422 (1) Metastatic cancer Area of secondary neoplastic involvement: unspecified site Qualified Code(s): C79.9 - Secondary malignant neoplasm of unspecified site
[2025-09-20] MEDS: HEPARIN 100 UNIT/ML 5ML FLUSH FLUSH PRN (16:31)
[2025-09-20] MEDS: LORazepam Inj 0.5 MG in SYRINGE 0.25 ML IV PRN (20:25)
--- NOTE | 2025-09-20 22:45 | Discharge Summary ---
Date of Service September 20, 2025 Admission HPI Per Admitting Provider 50-year-old white male with rhabdomyosarcoma metastatic to lungs and liver. He has had worsening back pain and abdominal pain lately accompanied by shortness of breath. Failure to thrive at home. He came to the ED for further evaluation and he has mild hypercalcemia and possible UTI. Liver enzymes are elevated as expected. [id number] is at the bedside. DNR status is agreed upon knowing that this does not mean do not treat. He was administered intravenous morphine in the ED and he is lethargic but arousable. He also received intravenous cefepime. He is admitted for further evaluation and treatment. Oncology consultation requested Principal Diagnosis Terminal Rhabdomyosarcoma Discharge Exam General-alert. No fever HEENT-head atraumatic and normocephalic, pupils equal and reactive to light, extraocular muscles intact Neck-no lymphadenopathy or thyromegaly, trachea midline Chest-clear to auscultation anteriorly. No rales, wheezing or rhonchi Cardiac-regular rate and rhythm, normal S1 and S2 Abdomen-normal bowel sounds, no hepatosplenomegaly Extremities-2+ pitting edema bilateral lower extremities Neuro-cranial nerves II through XII intact, motor and sensory function within normal limits, strength symmetrical with generalized weakness, no focal deficits Psych-depressed affect Discharge Data Allergies Allergy/AdvReac Type Severity Reaction Status Date / Time latex Allergy rash Verified 09/19/25 17:38 adhesive tape AdvReac rash Verified 09/19/25 17:38 Consultations 09/19/25 18:34 ED Decision to Admit Stat 09/19/25 21:31 Consult Oncology Routine 09/20/25 09:29 Consult Palliative Care Routine Ordered Studies 09/19/25 16:16 CT abd pelvis IV con only Stat CT lumbar spine w con Stat 09/19/25 16:20 CT angio chest PE protocol Stat Hospital Course (1) Cancer related pain: (2) Need for comfort care: (3) Advanced care planning/counseling discussion: (4) Weakness generalized: (5) Palliative care by specialist: (6) Rhabdomyosarcoma of pelvis: 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 Hospice evaluation has been requested. Comfort measures only. Total Time Total Time Spent Total Time Spent (In Minutes): see attending documentation Discharge Plan Discharge Items Patient Disposition: Hospice - Medical Facility Reason For Visit: TERMINAL METASTATIC MALIGNANCY Discharge Diagnosis: Terminal Metastatic Malignancy Condition on Discharge: Serious Activity: Resume your previous activity Non-emergency contact: Primary Care Provider Call non-emergency contact if: you have any medication questions Follow-up/Referrals: Manpreet Cardenas DO [Primary Care Provider] - Diet: Regular Addtl Attending Provider Instructions: Discharge to [facility] inpatient hospice at [facility] Pending Studies at Discharge: No Stand-Alone Forms: [facility] Sk[facility] Items Patient informed of condition?: Yes DNR: Yes Discharge Level of Care: Other Communicable Disease: No Discharge Prognosis: Deteriorating Lines: Peripheral IV Urinary Catheter: No Medications and DC Order Prescriptions: Discontinued naloxone 4 mg/actuation spray,non-aerosol 1 spray intranasal Q3M PRN (Reason: opioid overdose) Qty: 2 0RF Rx Instructions: administer 1 dose into ONE nostril; alternate nostrils w each dose until assistance arrives 27.17 cream 1 applic topical BID PRN (Reason: NEEDED) polyethylene glycol 3350 [Miralax] 17 gram/dose powder 17 g PO DAILY fentanyl 50 mcg/hr patch 72 hour 1 patch transdermal Q72H Qty: 10 0RF hydromorphone 2 mg tablet 2 mg PO .COMPLEX Qty: 120 0RF Rx Instructions: 2 mg orally 1-2 tabs PO q3-4h NMT 8/day; duloxetine 30 mg capsule,delayed release(DR/EC) 30 mg PO DAILY Qty: 30 2RF gabapentin 300 mg capsule 300 mg PO TID Qty: 90 5RF iron sucrose 100 mg iron/5 mL solution 300 mg IV Q7D Rx Instructions: administer over 30 mins anastrozole 1 mg tablet 0.125 mg PO 3XWK testosterone cypionate 100 mg/mL Oil 40 mg SUBCUT 3XWK Rx Instructions: THURSDAY, THURSDAY, AND THURSDAY nandrolone decanoate 100 mg/mL Syringe 20 mg IM 3XWK Rx Instructions: THURSDAY, THURSDAY, THURSDAY tadalafil 10 mg tablet 10 mg PO DAILY PRN (Reason: PRN) Eliquis 5 mg tablet 5 mg PO BID cyclobenzaprine 10 mg tablet 5 - 10 mg PO BID PRN (Reason: muscle spasm) Discharge Orders: Discharge Order (Routine); Ordered 09/20/25 Ordered By: Suleman Reese Admission Data Admit Date/Time: 09/19/25 19:00 Attending Provider: Ricardo Johnson Admit Provider: Ricardo Johnson Primary Care Provider: Manpreet Cardenas Other Providers: Ricardo Johnson; Michele Taylor; Ariella Campa; [facility] Other Interventions: Discharge Summary Assessment (RN) Last Done: 09/20/25 23:13 Supervising Physician Co-Signing Physician Notes The patient was seen by me. The chart was reviewed. Agree with assessment and plan Resident Activity Tracking Resident Involvement: Resident Care Provided Care Provided: Adult Hospital Medicine
[2025-09-20 23:15] VITALS: BP 118/85
--- NOTE | 2025-09-22 08:25 | Electrocardiogram Report ---
Test Reason : Blood Pressure : */* mmHG Vent. Rate : 118 BPM Atrial Rate : 118 BPM P-R Int : 130 ms QRS Dur : 94 ms QT Int : 296 ms P-R-T Axes : 33 -19 82 degrees QTcB Int : 414 ms Sinus tachycardia Possible Anterior infarct , age undetermined Abnormal ECG When compared with ECG of 28-Aug-2025 15:16, Borderline criteria for Anterior infarct are now Present Confirmed by Virgil Martines ([id number]) on 09/22/2025 8:25:14 AM Referred By: Confirmed By: Virgil Martines
== END 2025-09-20 23:15 | disposition hospice, inpatient (51) | DRG 542 ==
LOC: SUATTDRO → ED 16:00 → 3W 19:00 → 3E 09-20 18:04

== ENCOUNTER 2025-09-20 22:20 | Inpatient (IN) ==
[2025-09-20] MEDS ORDERED: GLYCOPYRROLATE 0.2 MG/ML VIAL IV PRN (22:59)
[2025-09-20] MEDS ORDERED: ACETAMINOPHEN 500 MG TAB PO PRN (22:59)
[2025-09-20] MEDS ORDERED: POLYETHYLENE (MIRALAX) 17 GM PACK PO PRN (22:59)
[2025-09-20] MEDS ORDERED: ONDANSETRON INJ 2 MG/ML 2 ML VIAL IV PRN ×2 (22:59)
[2025-09-20] MEDS ORDERED: PROCHLORPERAZINE 5 MG in SYRINGE 4 ML IV PRN (22:59)
[2025-09-20] MEDS ORDERED: MoRPHine SULFATE 2 MG/ML CARP IV PRN (22:59)
[2025-09-20] MEDS ORDERED: MoRPHine SULFATE 10 MG/0.5 ML UDP PO PRN (22:59)
[2025-09-20] MEDS ORDERED: MELATONIN 3 MG TAB PO PRN (22:59)
[2025-09-20] MEDS ORDERED: ATROPINE SULFATE 1% OP SOLN 5 ML BTL SL PRN (22:59)
[2025-09-20] MEDS ORDERED: MAGNESIUM HYDROXIDE SUSP 30 ML UDC PO PRN (22:59)
[2025-09-20] MEDS ORDERED: ALUMINUM/MAGNESIUM SUSP 30 ML UDC PO PRN (22:59)
[2025-09-20] MEDS ORDERED: HALOPERIDOL ORAL SOLN 2 MG/ML PO PRN (22:59)
[2025-09-20] MEDS ORDERED: PROMETHAZINE 12.5 MG/50.5 ML BAG IV PRN (22:59)
[2025-09-20] MEDS ORDERED: HYOSCYAMINE SULFATE 0.125 MG TAB SL PRN (22:59)
--- NOTE | 2025-09-20 23:09 | History & Physical Report ---
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 [facility] hospice to manage inpatient hospice care for intractable cancer pain related to patient's widely metastatic rhabdomyosarcoma. Patient is not interactive and unable to offer any meaningful history or ROS Allergies Allergy/AdvReac Type Severity Reaction Status Date / Time latex Allergy rash Verified 09/19/25 17:38 adhesive tape AdvReac rash Verified 09/19/25 17:38 Past Med/Surg History Problem List (Updated 09/20/25 @ 11:17 by Ariella Campa DNP) Advanced care planning/counseling discussion Palliative care by specialist Weakness generalized Need for comfort care Iliac vein thrombosis, left Suspected UTI Hypercalcemia of malignancy Acute UTI (Acute) Leukocytosis (Acute) Acute liver failure (Acute) Acute hyperkalemia (Acute) Abdominal pain (Acute) Hypercalcemia (Acute) Metastatic cancer (Acute) Opioid-induced constipation Cancer related pain Iron deficiency anemia Iron deficiency Left shoulder pain Metastasis to liver Constipation Distended bladder Left testicular pain Neurogenic bladder Lower back pain Erectile dysfunction Urinary hesitancy Pectoralis muscle rupture Medical History Pelvic mass in 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 Surgical History H/O knee surgery Social History Smoking Status: Never smoker Second Hand Exposure: No; Do You Dip or Chew Tobacco: No; Tobacco Cessation Education Requested by Patient: No Hx Alcohol Use: No Hx Substance Use: No Preferred Language: [place] Citizen Communication Ability: Effective Hearing Ability: Normal Junior Web Developer Required: No Beliefs That Will Affect Care: None marital status: Current Living Situation: Spouse and Family current occupational status: employed Other Information That Helps Us Care for You: No Feels Safe at Home: Yes Safety Concerns: Feels Safe At This Time Childhood Exposure to Second-Hand Smoke: No Seatbelt Use: always Sunscreen Use: Yes Assistive Devices: Cane, Hospital Bed, Oxygen - Continuous and Walker Review of Systems Review of Systems: reviewed, per HPI Physical Exam Physical Exam: Constitutional: terminally ill appearing, cachectic HEENT: NCAT, no conjunctival injection CV: regular rhythm, no murmur appreciated Resp: agonal breathing GI: nondistended MSK: no gross deformities appreciated Skin: pale Neuro: obtunded, unable to interact Code Status & VTE Plan VTE Prophylaxis Plan VTE Prophylaxis will be ordered: No Reason for no VTE drug order: Treatment not indicated Supervising Physician Co-Signing Physician Notes The patient was seen by me. The chart was reviewed. Agree with assessment and plan Resident Activity Tracking Resident Involvement: Resident Care Provided Care Provided: Adult Hospital Medicine (2) Metastatic cancer Area of secondary neoplastic involvement: unspecified site Qualified Code(s): C79.9 - Secondary malignant neoplasm of unspecified site
[2025-09-20] MEDS: LORazepam Inj 0.5 MG in SYRINGE 0.25 ML IV PRN (23:39)
[2025-09-21] MEDS: HYDROmorphone INJ 1 MG/ML SYRINGE IV PRN (00:12)
[2025-09-21 00:32] VITALS: BP 123/79; PULSE 122; RESP 18; TEMP 97.7; O2SAT 92
[2025-09-21] MEDS ORDERED: STAT IV Infusion **Titration per Protocol STA (02:19)
[2025-09-21] MEDS ORDERED: HYDROmorphone BOLUS from BAG IV PRN (02:19)
[2025-09-21] MEDS: LORazepam Inj 0.5 MG in SYRINGE 0.25 ML IV PRN (02:40)
[2025-09-21] MEDS: HYDROmorphone 100 MG/100 ML BAG IV SCH (02:41)
--- NOTE | 2025-09-21 04:43 | Death Pronouncement Note ---
Date of Service September 21, 2025 Pronouncement Note Admission Date September 20, 2025 Date and Time of Date of : 09/21/25 Time of : 04:41 Summary Alerted by nursing that the patient ceased to breath. When I arrived in room 301 I encountered the patient in the following state: Constitutional: laying motionless in hospital bed HEENT: pupils fixed and dilated CV: no appreciable heart sounds Resp: no chest rise, no breath sounds appreciated Skin: pale Neuro: unresponsive to verbal stimuli and sternal rub Additional Data Confirmation of : no pulse, no respirations, no heart sounds and pupils fixed and dilated Pronouncement Performed By: Resident Physician Family: at bedside Attending physician: Ricardo Johnson MD Was code activated?: No Resident Activity Tracking Resident Involvement: Resident Care Provided Care Provided: Adult Hospital Medicine
== END 2025-09-21 06:20 | disposition expired | DRG 543 ==
LOC: 3E 23:01